=== PATIENT | female | born 1995 | race Caucasian/White ===

== ENCOUNTER 2016-07-05 23:09 | Emergency (ER) | payer BC, MEDICAID ==
[2016-07-05 23:20] VITALS: BP 123/70
--- NOTE | 2016-07-05 23:27 | EDM.PDOC ---
ED HPI RENAL/ - General Chief Complaint: FISCAL OFFICER Problem Stated Complaint: VAGINAL BLEEDING,PASSED TISSUE TODAY Time Seen by Provider: 07/05/16 23:20 Source of Information: Reports: Patient History Limitations: Reports: No limitations - History of Present Illness INITIAL COMMENTS - FREE TEXT/NARRATIVE: Ed with concern of being . Period about one week overdue. Hx heavy periods on regular interval. On OCP sesonal. Had "large amount of Vaginal bleeding earlier tonight then "passed some tissue" Phone phot of "tissue " has appearance, milky white elongated with bright red blood tinged. No cramping, low back pain, hx endometriosis. Associated Symptoms: Reports: vaginal bleeding, vaginal discharge - Related Data Allergies/ADRs: Allergies Allergy/AdvReac Type Severity Reaction Status Date / Time No Known Allergies Allergy Verified 07/05/16 23:21 Home Meds: Home Meds Albuterol [Ventolin HFA] 2 puff INH Q4H PRN 03/02/13 [History] PNV No.115/Iron Fumarate/FA [ 19 Chewable Tablet] 1 each PO DAILY [History] Ferrous Sulfate 1 tab PO DAILY 11/09/13 [History] Ibuprofen 1 tab PO Q6HR PRN 11/09/13 [History] Topiramate [Topamax] 100 mg PO BID 07/05/16 [History] Past Medical History - Past Health History Medical/Surgical History: Denies Medical/Surgical History Social & Family History - Tobacco Use Second Hand Smoke Exposure: No - Alcohol Use Days Per Week of Alcohol Use: 0 - Recreational Drug Use Recreational Drug Use: No ED ROS GENERAL - Review of Systems Review Of Systems: ROS reveals no pertinent complaints other than HPI. ED EXAM, RENAL/ - Physical Exam Exam: See Below Exam Limited By: No limitations General Appearance: alert, anxious Nose: normal inspection Throat/Mouth: Normal inspection, Perioral cyanosis Head: atraumatic Neck: normal inspection Respiratory/Chest: no respiratory distress Cardiovascular: normal peripheral pulses, regular rate, rhythm GI/Abdominal: normal bowel sounds, soft, tender (Female) Exam: Normal external exam, Normal speculum exam, Adnexal tenderness (bilateral greater right), Cervical discharge (scant thick mucus at os), Vaginal discharge (scant dark brown). No: Cervical dilatation, Cervix motion tenderness, Uterine tenderness Back Exam: normal inspection. No: CVA tenderness (L), CVA tenderness (R) Neurological: alert, oriented Psychiatric: anxious Skin Exam: Warm, Dry, Intact Course - Vital Signs Last Recorded V/S: Last Vital Signs Temp 97.5 F 07/05/16 23:15 Pulse 85 07/05/16 23:15 Resp 18 07/05/16 23:15 BP 123/70 07/05/16 23:15 Pulse Ox 98 07/05/16 23:15 - Orders/Labs/Meds Labs: Laboratory Tests 07/05/16 07/05/16 Range/Units 23:32 23:32 WBC 8.2 (5.0-10.0) 10^3/uL RBC 3.94 L (4.2-5.4) 10^6/uL Hgb 12.7 (12.0-16.0) g/dL Hct 37.1 (37.0-47.0) % MCV 94.2 (80-100) fL MCH 32.2 (27.0-34.0) pg MCHC 34.2 (33.0-35.0) g/dL Plt Count 370 (150-450) 10^3/uL Neut % (Auto) 53.8 (42.2-75.2) % Lymph % (Auto) 33.5 (20.5-50.1) % [place] % (Auto) 9.6 H (2-8) % Eos % (Auto) 2.7 (1.0-3.0) % Baso % (Auto) 0.4 (0.0-1.0) % Sodium 135 (135-145) mmol/L Potassium 3.0 L (3.6-5.0) mmol/L Chloride 105 (101-111) mmol/L Carbon Dioxide 24.0 (21.0-31.0) mmol/L Anion Gap 9.0 BUN 15 (7-18) mg/dL Creatinine 0.7 (0.6-1.3) mg/dL Est Cr Clr Drug Dosing 104.28 mL/min Estimated GFR (MDRD) > 60 BUN/Creatinine Ratio 21.42 Glucose 111 H (74-105) mg/dL Calcium 9.2 (8.4-10.2) mg/dl Total Bilirubin 0.5 (0.2-1.0) mg/dL AST 22 (10-42) IU/L ALT 25 (10-60) IU/L Alkaline Phosphatase 42 (42-121) IU/L Total Protein 7.8 (6.7-8.2) g/dl Albumin 4.6 (3.2-5.5) g/dl Globulin 3.2 Albumin/Globulin Ratio 1.44 HCG, Qual Negative Meds: Medications Discontinued Medications Generic Name Dose Route Start Last Admin Trade Name Freq PRN Reason Stop Dose Admin Potassium Chloride 20 meq 07/06/16 00:16 07/06/16 00:30 Klor-Con 10 PO 07/06/16 00:17 20 meq ONETIME ONE Administration Departure - Departure Time of Disposition: 00:17 Disposition: Home, Self-Care 01 Condition: good Clinical Impression: Vaginal discharge, Hypokalemia Instructions: Endometriosis Referrals: Cielo Hernandez MD [Primary Care Provider] - Forms: ED Department Discharge Additional Instructions: follow up with FISCAL OFFICER return if severe vaginal bleeding - one large pad per hour ibuprofen 600mg every 6 hours for cramping
[2016-07-05 23:57] LABS: CHLORIDE,CL 105 mmol/L (101-111); SODIUM,NA 135 mmol/L (135-145)
[2016-07-06] MEDS ORDERED: Potassium Chloride 10 MEQ Tab.ER PO ONE (00:16)
== END 2016-07-06 00:31 | disposition home or self-care (01) ==
LOC: DL.ED 23:09
DX: N89.8 Other specified noninflammatory disorders of vagina (principal); E87.6 Hypokalemia; Z79.899 Other long term (current) drug therapy
CPT/HCPCS: 36415; 80053; 84703; 85025; 99284; A9270

== ENCOUNTER 2024-01-12 08:23 | Emergency (ER) | payer BC, OTHER ==
[2024-01-12] MEDS: Ondansetron 4 MG/2 ML SDV IVPUSH ONE (08:42)
[2024-01-12] MEDS: diphenhydrAMINE 50 MG/ML SDV IVPUSH ONE (08:44)
[2024-01-12] MEDS: Metoclopramide 10 MG/2 ML SDV IVPUSH ONE (08:46)
[2024-01-12 08:48] LABS: BASOPHILS PERCENT AUTO 0.3 % (0.0-1.0); EOSINOPHILS PERCENT AUTO 2.1 % (1.0-3.0); HEMATOCRIT 39.4 % (37.0-47.0); HEMOGLOBIN 13.2 g/dL (12.0-16.0); LYMPHOCYTES PERCENT AUTO 27.2 % (20.5-50.1); MEAN CORPUSCULAR HEMOGLOBIN 30.9 pg (27.0-34.0); MEAN CORPUSCULAR HGB CONC 33.5 g/dL (33.0-35.0); MEAN CORPUSCULAR VOLUME 92.3 fL (80-100); MONOCYTES PERCENT AUTO 8.2 % (2-8); NEUTROPHILS PERCENT AUTO 62.2 % (42.2-75.2); PLATELET COUNT,PLT 487 10^3/uL (150-450); RED BLOOD CELL COUNT 4.27 10^6/uL (4.2-5.4); WHITE BLOOD CELL COUNT,WBC 11.6 10^3/uL (5.0-10.0)
[2024-01-12 08:57] VITALS: BP 136/99; PULSE 77
[2024-01-12] MEDS: Ketorolac 30 MG/ML SDV IVPUSH ONE (09:03)
[2024-01-12 09:39] LABS: A/G RATIO 1.2; ALBUMIN 3.8 g/dL (3.4-5.0); ANION GAP 14.7 mEq/L (7-13); BILIRUBIN TOTAL 0.4 mg/dL (0.2-1.0); BUN/CREATININE RATIO 17.1 (No establ ref range); CALCIUM 8.9 mg/dL (8.5-10.1); CREATININE 0.76 mg/dL (0.55-1.02); EST CRCL DRUG DOSING (CG) 89.54 mL/min; POTASSIUM,K 3.7 mmol/L (3.5-5.1); PROTEIN TOTAL,TP 7.1 g/dL (6.4-8.2)
== END 2024-01-12 09:22 | disposition home or self-care (01) ==
LOC: DL.ED 08:23
DX: G43.019 Migraine without aura, intractable, without status migrainosus (principal); Z79.899 Other long term (current) drug therapy
CPT/HCPCS: 36415; 70450; 80053; 85025; 96374; 96375; 99283; 99284-25; J1200; J1885; J2405; J2765